=== PATIENT | female | born 1985 | race Caucasian/White ===

== ENCOUNTER 2017-02-02 17:02 | Emergency (ER) | payer OTHER ==
[~2017-02-02] VITALS: Ht 165.1 cm; Wt 84.4 kg
[2017-02-02] MEDS ORDERED: CYMBALTA60 MG PO (17:52)
[2017-02-02] MEDS ORDERED: SUBOXONE 8 MG-1 EAC2 SL (18:04)
[2017-02-02 18:25] VITALS: BP 142/106
== END 2017-02-02 18:26 | disposition home or self-care (01) ==
LOC: EME 17:02
DX: Z76.0 Encounter for issue of repeat prescription (principal); F32.9 Major depressive disorder, single episode, unspecified; F41.9 Anxiety disorder, unspecified
CPT/HCPCS: 99281; 99283